=== PATIENT | female | born 1935 | race Asian ===

== ENCOUNTER 2021-05-17 14:49 | Inpatient (IN) ==
[2021-05-17] MEDS ORDERED: Acetaminophen 325 MG TABLET PO PRN (16:57)
[2021-05-17] MEDS ORDERED: Ondansetron 4 MG/2 ML VIAL IVP PRN ×2 (16:57→19:50)
[2021-05-17] MEDS ORDERED: *HR* OxyCODONE Immed Rel 5 MG TABLET PO PRN (17:00)
[2021-05-17] MEDS ORDERED: 0.9 % Sodium Chloride 1,000 ML IVC SCH (17:00)
[2021-05-17] MEDS ORDERED: *HR* HYDROmorphone (PF) 1 MG/ML SYRINGE IVP PRN (17:00)
[2021-05-17] MEDS ORDERED: Ringers Solution, Lactated 1,000 ML IVC ONE (17:14)
[2021-05-17] MEDS ORDERED: Piperacillin/Tazobactam 3.375 GM in 0.9 % Sodium Chloride Mini Bag 100 ML IVPB SCH (17:15)
[2021-05-17] MEDS ORDERED: *HR* HYDROmorphone 2 MG/ML SYRINGE IVP ONE (19:39)
[2021-05-17] MEDS ORDERED: *HR* FentaNYL (PF) 100 MCG/2 ML VIAL IVP PRN (19:50)
[2021-05-17] MEDS ORDERED: *HR* Succinylcholine 200 MG/10 ML VIAL IVP ONE (19:53)
[2021-05-17] MEDS ORDERED: Lidocaine -MPF 4% 5 ML AMPUL ONE (19:53)
[2021-05-17] MEDS ORDERED: *HR* Propofol 200 MG/20 ML VIAL IVP ONE (19:53)
[2021-05-17] MEDS ORDERED: Lidocaine HCL 4 ML Topical Solution (Laryng-O-Jet Kit Sterile Pak) TP ONE (19:53)
[2021-05-17] MEDS ORDERED: *HR* Rocuronium Bromide 50 MG/5 ML VIAL ONE (19:53)
[2021-05-17] MEDS ORDERED: *HR* Phenylephrine 10 MG/ML VIAL ONE (21:16)
[2021-05-17] MEDS ORDERED: Albumin Human 5% 12.5 GM/250 ML IV.SOLN ONE (21:21)
[2021-05-17] MEDS ORDERED: Sugammadex Sodium 200 MG/2 ML VIAL IV ONE (21:40)
[2021-05-17] MEDS ORDERED: *HR* Heparin 5,000 UNIT/ML VIAL SQ SCH (22:00)
[2021-05-17] MEDS ORDERED: Morphine Sulfate 2 MG/ML SYRINGE IVP PRN (23:11)
[2021-05-17] MEDS: 0.9 % Sodium Chloride 1,000 ML IVC SCH (23:23)
[2021-05-17] MEDS: Acetaminophen IV 1,000 MG/100 ML BAG IVPB SCH (23:26)
[2021-05-18 02:58] LABS: Hematocrit 27.7 % (35.3-44.9); Hemoglobin 9.7 g/dL (11.5-15.4); Mean Corpuscular Hemoglobin 30.9 pg (28.0-33.3); Mean Corpuscular Volume 88.2 fL (83.0-100.0); Mean Platelet Volume 9.1 fL (9.4-12.4); Platelet Count 211 K/mcL (140-400); Red Blood Count 3.14 M/mcL (3.82-4.97); Red Cell Distribution Width 12.5 % (11.5-14.5); White Blood Count 6.8 K/mcL (4.3-11.1)
[2021-05-18 03:13] LABS: BUN/Creatinine Ratio 26 (6-26); Blood Urea Nitrogen 15 mg/dL (8-23); Calcium 7.9 mg/dL (8.6-10.3); Carbon Dioxide 22 mEq/L (23-29); Chloride 100 mEq/L (98-107); Glucose 174 mg/dL (70-105); Osmolality,Calculated 277 (280-300); Potassium 3.8 mEq/L (3.5-5.1); Sodium 131 mEq/L (136-145); eGFR For African Americans > 60 (> 60); eGFR For Non-African Americans > 60 (> 60)
[2021-05-18] MEDS: Acetaminophen IV 1,000 MG/100 ML BAG IVPB SCH ×3 (05:53→17:23)
[2021-05-18] MEDS: *HR* Heparin 5,000 UNIT/ML VIAL SQ SCH ×3 (05:53→21:39)
[2021-05-18] MEDS ORDERED: Chloraseptic Spray 177 ML BOTTLE MM PRN (08:59)
[2021-05-18] MEDS: Ketorolac 15 MG/ML VIAL IVP SCH ×2 (12:09→17:24)
[2021-05-18] MEDS ORDERED: Dextrose Gel 15 GM/37.5 ML TUBE PO PRN ×2 (12:37)
[2021-05-18] MEDS ORDERED: D5% in Water 1,000 ML IVC PRN (12:37)
[2021-05-18] MEDS: Insulin LISPRO 300 UNITS/3 ML VIAL SUBQ SCH ×2 (17:26→23:58)
[2021-05-18] MEDS: 0.9 % Sodium Chloride 1,000 ML IVC SCH ×2 (21:20→21:40)
[2021-05-18] MEDS: rOPINIRole 0.25 MG TABLET PO SCH (21:37)
[2021-05-19] MEDS: Acetaminophen IV 1,000 MG/100 ML BAG IVPB SCH ×4 (00:02→21:38)
[2021-05-19] MEDS: Ketorolac 15 MG/ML VIAL IVP SCH ×2 (00:03→05:47)
[2021-05-19] MEDS: *HR* Heparin 5,000 UNIT/ML VIAL SQ SCH ×2 (05:48→13:54)
[2021-05-19 07:48] LABS: Hematocrit 24.1 % (35.3-44.9); Mean Corpuscular HGB Conc 33.2 g/dL (31.6-35.5); Mean Corpuscular Hemoglobin 30.4 pg (28.0-33.3); Mean Corpuscular Volume 91.6 fL (83.0-100.0); Mean Platelet Volume 9.3 fL (9.4-12.4); Platelet Count 185 K/mcL (140-400); Red Blood Count 2.63 M/mcL (3.82-4.97); Red Cell Distribution Width 12.9 % (11.5-14.5); White Blood Count 6.9 K/mcL (4.3-11.1)
[2021-05-19 08:04] LABS: BUN/Creatinine Ratio 20 (6-26); Blood Urea Nitrogen 14 mg/dL (8-23); Calcium 8.2 mg/dL (8.6-10.3); Carbon Dioxide 26 mEq/L (23-29); Chloride 107 mEq/L (98-107); Glucose 93 mg/dL (70-105); Magnesium 2.1 mg/dL (1.6-2.6); Osmolality,Calculated 284 (280-300); Potassium 3.4 mEq/L (3.5-5.1); Sodium 137 mEq/L (136-145); eGFR For African Americans > 60 (> 60); eGFR For Non-African Americans > 60 (> 60)
[2021-05-19] MEDS: Insulin LISPRO 300 UNITS/3 ML VIAL SUBQ SCH ×3 (08:46→17:47)
[2021-05-19] MEDS: 0.9 % Sodium Chloride 1,000 ML IVC SCH (11:45)
[2021-05-19] MEDS: rOPINIRole 0.25 MG TABLET PO SCH (21:38)
[2021-05-20] MEDS: Acetaminophen IV 1,000 MG/100 ML BAG IVPB SCH ×4 (00:27→18:27)
[2021-05-20 02:45] LABS: Hematocrit 23.5 % (35.3-44.9); Hemoglobin 7.9 g/dL (11.5-15.4); Mean Corpuscular HGB Conc 33.6 g/dL (31.6-35.5); Mean Corpuscular Hemoglobin 30.6 pg (28.0-33.3); Mean Corpuscular Volume 91.1 fL (83.0-100.0); Mean Platelet Volume 9.1 fL (9.4-12.4); Platelet Count 185 K/mcL (140-400); Red Blood Count 2.58 M/mcL (3.82-4.97); Red Cell Distribution Width 12.9 % (11.5-14.5); White Blood Count 6.2 K/mcL (4.3-11.1)
[2021-05-20 03:12] LABS: BUN/Creatinine Ratio 27 (6-26); Blood Urea Nitrogen 16 mg/dL (8-23); Calcium 8.1 mg/dL (8.6-10.3); Carbon Dioxide 21 mEq/L (23-29); Chloride 105 mEq/L (98-107); Glucose 63 mg/dL (70-105); Iron 19 mcg/dL (50-170); Osmolality,Calculated 279 (280-300); Phosphorous 1.7 mg/dL (2.7-4.5); Potassium 3.3 mEq/L (3.5-5.1); Sodium 135 mEq/L (136-145); eGFR For African Americans > 60 (> 60); eGFR For Non-African Americans > 60 (> 60)
[2021-05-20 03:24] LABS: Ferritin 217 ng/mL (10-120)
[2021-05-20] MEDS: *HR* Heparin 5,000 UNIT/ML VIAL SQ SCH ×3 (04:34→17:07)
[2021-05-20] MEDS: Insulin LISPRO 300 UNITS/3 ML VIAL SUBQ SCH ×5 (04:35→19:57)
[2021-05-20] MEDS: 0.9 % Sodium Chloride 1,000 ML IVC SCH ×2 (05:00→17:07)
[2021-05-20] MEDS: *HR* Dextrose 50 % in Water (Syg) 50 ML SYRINGE IVP PRN ×2 (05:01→12:19)
[2021-05-20 06:18] LABS: % Iron Saturation 11 % (15-50); Transferrin 129 mg/dL (203-362)
[2021-05-20] MEDS ORDERED: Iron Sucrose Complex 400 MG in 0.9 % Sodium Chloride 250 ML IVPB ONE (07:38)
[2021-05-20] MEDS ORDERED: Potassium Phosphate 44 MEQ in 0.9 % Sodium Chloride 250 ML IVPB ONE (07:38)
[2021-05-20] MEDS ORDERED: Lidocaine -MPF 1% 5 ML AMPUL INFILT ONE (08:01)
[2021-05-20] MEDS ORDERED: D10% in Water 500 ML IVC PRN (12:57)
[2021-05-20] MEDS ORDERED: Clinimix E 5%-15% SOLUTION 2,000 ML with MVI, adult with vitamin K 10 ML IVC SCH (17:00)
[2021-05-20] MEDS: rOPINIRole 0.25 MG TABLET PO SCH (19:57)
[2021-05-21] MEDS: Acetaminophen IV 1,000 MG/100 ML BAG IVPB SCH ×5 (01:06→23:47)
[2021-05-21] MEDS: Insulin LISPRO 300 UNITS/3 ML VIAL SUBQ SCH ×7 (01:14→23:48)
[2021-05-21] MEDS: 0.9 % Sodium Chloride 1,000 ML IVC SCH (05:00)
[2021-05-21 05:49] LABS: BUN/Creatinine Ratio 21 (6-26); Blood Urea Nitrogen 10 mg/dL (8-23); Calcium 8.3 mg/dL (8.6-10.3); Carbon Dioxide 30 mEq/L (23-29); Chloride 104 mEq/L (98-107); Glucose 168 mg/dL (70-105); Osmolality,Calculated 289 (280-300); Phosphorous 2.2 mg/dL (2.7-4.5); Potassium 3.1 mEq/L (3.5-5.1); Sodium 138 mEq/L (136-145); eGFR For African Americans > 60 (> 60); eGFR For Non-African Americans > 60 (> 60)
[2021-05-21 06:00] LABS: Hematocrit 24.1 % (35.3-44.9); Hemoglobin 8.2 g/dL (11.5-15.4); Mean Corpuscular Hemoglobin 30.4 pg (28.0-33.3); Mean Corpuscular Volume 89.3 fL (83.0-100.0); Mean Platelet Volume 8.8 fL (9.4-12.4); Platelet Count 206 K/mcL (140-400); Red Cell Distribution Width 12.7 % (11.5-14.5); White Blood Count 5.1 K/mcL (4.3-11.1)
[2021-05-21] MEDS ORDERED: Potassium Chloride 20 MEQ, Lidocaine 1% 2 ML in 0.9 % Sodium Chloride 250 ML IVPB ONE (07:02)
[2021-05-21] MEDS ORDERED: Potassium Phosphate 44 MEQ in 0.9 % Sodium Chloride 250 ML IVPB ONE ×2 (07:31→08:00)
[2021-05-21] MEDS: *HR* Heparin 5,000 UNIT/ML VIAL SQ SCH ×3 (07:33→22:24)
[2021-05-21 08:12] LABS: Triglycerides 233 mg/dL (< 150)
[2021-05-21] MEDS: Ketorolac 15 MG/ML VIAL IVP SCH ×2 (12:53→20:24)
[2021-05-21] MEDS ORDERED: Clinimix E 5%-15% SOLUTION 2,000 ML with MVI, adult with vitamin K 10 ML IVC SCH (17:00)
[2021-05-21] MEDS: rOPINIRole 0.25 MG TABLET PO SCH (20:26)
[2021-05-22] MEDS: Insulin LISPRO 300 UNITS/3 ML VIAL SUBQ SCH ×5 (04:26→20:36)
[2021-05-22] MEDS: Ketorolac 15 MG/ML VIAL IVP SCH ×3 (04:39→20:36)
[2021-05-22] MEDS: *HR* Heparin 5,000 UNIT/ML VIAL SQ SCH ×3 (05:35→22:16)
[2021-05-22 05:39] LABS: Hematocrit 27.1 % (35.3-44.9); Hemoglobin 9.4 g/dL (11.5-15.4); Mean Corpuscular HGB Conc 34.7 g/dL (31.6-35.5); Mean Corpuscular Hemoglobin 30.9 pg (28.0-33.3); Mean Corpuscular Volume 89.1 fL (83.0-100.0); Mean Platelet Volume 8.8 fL (9.4-12.4); Platelet Count 216 K/mcL (140-400); Red Blood Count 3.04 M/mcL (3.82-4.97); Red Cell Distribution Width 12.7 % (11.5-14.5); White Blood Count 5.1 K/mcL (4.3-11.1)
[2021-05-22 05:54] LABS: BUN/Creatinine Ratio 29 (6-26); Blood Urea Nitrogen 15 mg/dL (8-23); Calcium 9.2 mg/dL (8.6-10.3); Carbon Dioxide 30 mEq/L (23-29); Chloride 99 mEq/L (98-107); Glucose 140 mg/dL (70-105); Osmolality,Calculated 285 (280-300); Phosphorous 3.4 mg/dL (2.7-4.5); Potassium 3.2 mEq/L (3.5-5.1); Sodium 136 mEq/L (136-145); eGFR For African Americans > 60 (> 60); eGFR For Non-African Americans > 60 (> 60)
[2021-05-22] MEDS: Acetaminophen IV 1,000 MG/100 ML BAG IVPB SCH ×2 (08:44→17:17)
[2021-05-22] MEDS ORDERED: Potassium Chloride 40 MEQ, Lidocaine 1% 2 ML in 0.9 % Sodium Chloride 500 ML IVPB ONE (09:37)
[2021-05-22] MEDS ORDERED: Clinimix E 5%-15% SOLUTION 2,000 ML with MVI, adult with vitamin K 10 ML IVC SCH (17:00)
[2021-05-22] MEDS: rOPINIRole 0.25 MG TABLET PO SCH (20:44)
[2021-05-23] MEDS: Insulin LISPRO 300 UNITS/3 ML VIAL SUBQ SCH ×6 (01:09→23:36)
[2021-05-23] MEDS: Acetaminophen IV 1,000 MG/100 ML BAG IVPB SCH ×3 (01:10→15:17)
[2021-05-23 05:40] LABS: BUN/Creatinine Ratio 40 (6-26); Blood Urea Nitrogen 21 mg/dL (8-23); Calcium 9.3 mg/dL (8.6-10.3); Carbon Dioxide 30 mEq/L (23-29); Chloride 99 mEq/L (98-107); Glucose 130 mg/dL (70-105); Magnesium 2.1 mg/dL (1.6-2.6); Osmolality,Calculated 285 (280-300); Phosphorous 4.2 mg/dL (2.7-4.5); Potassium 4.1 mEq/L (3.5-5.1); Sodium 135 mEq/L (136-145); eGFR For African Americans > 60 (> 60); eGFR For Non-African Americans > 60 (> 60)
[2021-05-23] MEDS: *HR* Heparin 5,000 UNIT/ML VIAL SQ SCH ×2 (05:49→15:17)
[2021-05-23] MEDS: Ketorolac 15 MG/ML VIAL IVP SCH ×3 (05:49→20:37)
[2021-05-23] MEDS: 0.9 % Sodium Chloride 1,000 ML IVC SCH (16:59)
[2021-05-23] MEDS ORDERED: Clinimix E 5%-15% SOLUTION 2,000 ML with MVI, adult with vitamin K 10 ML IVC SCH (17:00)
[2021-05-23] MEDS: rOPINIRole 0.25 MG TABLET PO SCH (20:39)
[2021-05-24] MEDS: *HR* Heparin 5,000 UNIT/ML VIAL SQ SCH ×4 (00:10→22:03)
[2021-05-24] MEDS: Insulin LISPRO 300 UNITS/3 ML VIAL SUBQ SCH ×6 (00:10→22:01)
[2021-05-24] MEDS: Ketorolac 15 MG/ML VIAL IVP SCH (05:21)
[2021-05-24 05:58] LABS: Hematocrit 29.5 % (35.3-44.9); Hemoglobin 9.8 g/dL (11.5-15.4); Mean Corpuscular HGB Conc 33.2 g/dL (31.6-35.5); Mean Corpuscular Hemoglobin 30.3 pg (28.0-33.3); Mean Corpuscular Volume 91.3 fL (83.0-100.0); Mean Platelet Volume 8.8 fL (9.4-12.4); Platelet Count 306 K/mcL (140-400); Red Blood Count 3.23 M/mcL (3.82-4.97); Red Cell Distribution Width 12.8 % (11.5-14.5)
[2021-05-24 05:59] LABS: White Blood Count 9.7 K/mcL (4.3-11.1)
[2021-05-24 06:24] LABS: BUN/Creatinine Ratio 39 (6-26); Blood Urea Nitrogen 21 mg/dL (8-23); Calcium 9.4 mg/dL (8.6-10.3); Carbon Dioxide 27 mEq/L (23-29); Chloride 98 mEq/L (98-107); Glucose 155 mg/dL (70-105); Magnesium 2.1 mg/dL (1.6-2.6); Osmolality,Calculated 282 (280-300); Phosphorous 3.5 mg/dL (2.7-4.5); Potassium 4.6 mEq/L (3.5-5.1); Sodium 133 mEq/L (136-145); eGFR For African Americans > 60 (> 60); eGFR For Non-African Americans > 60 (> 60)
[2021-05-24] MEDS ORDERED: *HR* OxyCODONE/APAP 5/325 TABLET PO PRN (08:07)
[2021-05-24] MEDS ORDERED: Acetaminophen 325 MG TABLET PO PRN (08:08)
[2021-05-24] MEDS: Losartan/HCTZ 50-12.5 TABLET PO SCH (09:30)
[2021-05-24] MEDS: Gabapentin 300 MG CAPSULE PO SCH (09:30)
[2021-05-24] MEDS: Ibuprofen 400 MG TABLET PO SCH ×2 (09:30→16:31)
[2021-05-24] MEDS ORDERED: Clinimix E 5%-15% SOLUTION 2,000 ML with MVI, adult with vitamin K 10 ML IVC SCH (17:00)
[2021-05-24] MEDS: rOPINIRole 0.25 MG TABLET PO SCH (22:01)
[2021-05-25] MEDS: Ibuprofen 400 MG TABLET PO SCH ×3 (00:08→17:24)
[2021-05-25] MEDS: Insulin LISPRO 300 UNITS/3 ML VIAL SUBQ SCH ×6 (00:08→20:52)
[2021-05-25 05:21] LABS: Hematocrit 25.8 % (35.3-44.9); Hemoglobin 8.4 g/dL (11.5-15.4); Mean Corpuscular HGB Conc 32.6 g/dL (31.6-35.5); Mean Corpuscular Hemoglobin 30.2 pg (28.0-33.3); Mean Corpuscular Volume 92.8 fL (83.0-100.0); Platelet Count 328 K/mcL (140-400); Red Blood Count 2.78 M/mcL (3.82-4.97); Red Cell Distribution Width 13.1 % (11.5-14.5); White Blood Count 8.3 K/mcL (4.3-11.1)
[2021-05-25] MEDS: *HR* Heparin 5,000 UNIT/ML VIAL SQ SCH ×3 (05:37→20:44)
[2021-05-25 05:42] LABS: BUN/Creatinine Ratio 63 (6-26); Blood Urea Nitrogen 33 mg/dL (8-23); Calcium 9.4 mg/dL (8.6-10.3); Carbon Dioxide 29 mEq/L (23-29); Chloride 99 mEq/L (98-107); Glucose 123 mg/dL (70-105); Magnesium 2.1 mg/dL (1.6-2.6); Osmolality,Calculated 285 (280-300); Phosphorous 4.1 mg/dL (2.7-4.5); Potassium 4.7 mEq/L (3.5-5.1); Sodium 133 mEq/L (136-145); eGFR For African Americans > 60 (> 60); eGFR For Non-African Americans > 60 (> 60)
[2021-05-25] MEDS: Losartan/HCTZ 50-12.5 TABLET PO SCH (09:07)
[2021-05-25] MEDS: Gabapentin 300 MG CAPSULE PO SCH (09:08)
[2021-05-25] MEDS: polyethylene glycoL 3350 17 GM POWD.PACK PO SCH (11:27)
[2021-05-25] MEDS ORDERED: 0.9 % Sodium Chloride 500 ML IVC ONE (14:35)
[2021-05-25] MEDS ORDERED: Clinimix E 5%-15% SOLUTION 2,000 ML with MVI, adult with vitamin K 10 ML IVC SCH (17:00)
[2021-05-25] MEDS: MOM Conc 10 ML UD.LIQ PO SCH (20:44)
[2021-05-25] MEDS: rOPINIRole 0.25 MG TABLET PO SCH (20:44)
[2021-05-26] MEDS: Ibuprofen 400 MG TABLET PO SCH ×2 (00:05→08:10)
[2021-05-26] MEDS: Insulin LISPRO 300 UNITS/3 ML VIAL SUBQ SCH ×6 (03:05→21:05)
[2021-05-26] MEDS: *HR* Heparin 5,000 UNIT/ML VIAL SQ SCH (05:29)
[2021-05-26] MEDS ORDERED: Ringers Solution, Lactated 1,000 ML IVC ONE (07:47)
[2021-05-26 08:16] LABS: BUN/Creatinine Ratio 83 (6-26); Blood Urea Nitrogen 49 mg/dL (8-23); Carbon Dioxide 28 mEq/L (23-29); Chloride 100 mEq/L (98-107); Glucose 155 mg/dL (70-105); Osmolality,Calculated 292 (280-300); Phosphorous 4.2 mg/dL (2.7-4.5); Potassium 4.5 mEq/L (3.5-5.1); Sodium 133 mEq/L (136-145); eGFR For African Americans > 60 (> 60); eGFR For Non-African Americans > 60 (> 60)
[2021-05-26 08:58] LABS: Magnesium 2.8 mg/dL (1.6-2.6)
[2021-05-26] MEDS: Gabapentin 300 MG CAPSULE PO SCH (09:11)
[2021-05-26 11:00] LABS: Hematocrit 18.7 % (35.3-44.9); Hemoglobin 6.1 g/dL (11.5-15.4); Mean Corpuscular HGB Conc 32.6 g/dL (31.6-35.5); Mean Corpuscular Hemoglobin 30.7 pg (28.0-33.3); Mean Platelet Volume 9.2 fL (9.4-12.4); Platelet Count 348 K/mcL (140-400); Red Blood Count 1.99 M/mcL (3.82-4.97); Red Cell Distribution Width 13.3 % (11.5-14.5); White Blood Count 9.4 K/mcL (4.3-11.1)
[2021-05-26] MEDS ORDERED: 0.9 % Sodium Chloride 250 ML ONE (11:07)
[2021-05-26] MEDS: polyethylene glycoL 3350 17 GM POWD.PACK PO SCH (11:12)
[2021-05-26] MEDS ORDERED: 0.9 % Sodium Chloride 250 ML IVC SCH (11:15)
[2021-05-26] MEDS ORDERED: Pantoprazole 40 MG VIAL IVP SCH (11:15)
[2021-05-26] MEDS ORDERED: Clinimix E 5%-15% SOLUTION 2,000 ML with MVI, adult with vitamin K 10 ML IVC SCH (17:00)
[2021-05-26 20:35] LABS: Hematocrit 22.6 % (35.3-44.9); Hemoglobin 7.6 g/dL (11.5-15.4); Mean Corpuscular HGB Conc 33.6 g/dL (31.6-35.5); Mean Corpuscular Hemoglobin 30.9 pg (28.0-33.3); Mean Corpuscular Volume 91.9 fL (83.0-100.0); Mean Platelet Volume 9.3 fL (9.4-12.4); Platelet Count 338 K/mcL (140-400); Red Blood Count 2.46 M/mcL (3.82-4.97); Red Cell Distribution Width 13.6 % (11.5-14.5); White Blood Count 12.3 K/mcL (4.3-11.1)
[2021-05-26] MEDS: Pantoprazole 40 MG VIAL IVP SCH (21:03)
[2021-05-26] MEDS: MOM Conc 10 ML UD.LIQ PO SCH (21:04)
[2021-05-26] MEDS: rOPINIRole 0.25 MG TABLET PO SCH (21:04)
[2021-05-27] MEDS: Insulin LISPRO 300 UNITS/3 ML VIAL SUBQ SCH ×6 (00:21→20:21)
[2021-05-27 06:42] LABS: Basophils % 0.4 %; Eosinophils # 0.2 K/mcL (0.0-0.6); Eosinophils % 1.6 %; Hematocrit 21.8 % (35.3-44.9); Hemoglobin 7.4 g/dL (11.5-15.4); Lymphocytes # 1.5 K/mcL (0.6-4.6); Lymphocytes % 15.1 %; Mean Corpuscular HGB Conc 33.9 g/dL (31.6-35.5); Mean Corpuscular Hemoglobin 31.6 pg (28.0-33.3); Mean Corpuscular Volume 93.2 fL (83.0-100.0); Mean Platelet Volume 9.4 fL (9.4-12.4); Monocytes # 0.7 K/mcL (0.0-1.3); Monocytes % 6.6 %; Neutrophils # 7.4 K/mcL (1.6-8.9); Nucleated Red Blood Cells 0.3 /100 WBC (0); Platelet Count 326 K/mcL (140-400); Red Blood Count 2.34 M/mcL (3.82-4.97); Red Cell Distribution Width 13.8 % (11.5-14.5); Segmented Neutrophils % 74.3 %
[2021-05-27 07:03] LABS: BUN/Creatinine Ratio 41 (6-26); Blood Urea Nitrogen 23 mg/dL (8-23); Calcium 8.9 mg/dL (8.6-10.3); Carbon Dioxide 28 mEq/L (23-29); Chloride 102 mEq/L (98-107); Glucose 149 mg/dL (70-105); Magnesium 2.4 mg/dL (1.6-2.6); Osmolality,Calculated 286 (280-300); Phosphorous 2.7 mg/dL (2.7-4.5); Potassium 3.9 mEq/L (3.5-5.1); Sodium 135 mEq/L (136-145); eGFR For African Americans > 60 (> 60); eGFR For Non-African Americans > 60 (> 60)
[2021-05-27] MEDS: Gabapentin 300 MG CAPSULE PO SCH (09:12)
[2021-05-27] MEDS: polyethylene glycoL 3350 17 GM POWD.PACK PO SCH (09:12)
[2021-05-27] MEDS: Pantoprazole 40 MG VIAL IVP SCH ×2 (09:18→20:41)
[2021-05-27] MEDS ORDERED: Iron Sucrose Complex 250 MG in 0.9 % Sodium Chloride 250 ML IVPB ONE (13:38)
[2021-05-27] MEDS: MOM Conc 10 ML UD.LIQ PO SCH (20:41)
[2021-05-27] MEDS: rOPINIRole 0.25 MG TABLET PO SCH (20:41)
[2021-05-28] MEDS: Insulin LISPRO 300 UNITS/3 ML VIAL SUBQ SCH ×2 (00:21→06:00)
[2021-05-28] MEDS: Ondansetron 4 MG/2 ML VIAL IVP PRN ×2 (00:38→23:19)
[2021-05-28 04:37] LABS: BUN/Creatinine Ratio 30 (6-26); Blood Urea Nitrogen 21 mg/dL (8-23); Carbon Dioxide 29 mEq/L (23-29); Chloride 99 mEq/L (98-107); Glucose 114 mg/dL (70-105); Magnesium 2.7 mg/dL (1.6-2.6); Osmolality,Calculated 282 (280-300); Potassium 4.4 mEq/L (3.5-5.1); Sodium 134 mEq/L (136-145); eGFR For African Americans > 60 (> 60); eGFR For Non-African Americans > 60 (> 60)
[2021-05-28 05:45] LABS: Hematocrit 22.5 % (35.3-44.9); Hemoglobin 7.3 g/dL (11.5-15.4); Mean Corpuscular HGB Conc 32.4 g/dL (31.6-35.5); Mean Corpuscular Hemoglobin 31.2 pg (28.0-33.3); Mean Corpuscular Volume 96.2 fL (83.0-100.0); Red Blood Count 2.34 M/mcL (3.82-4.97); Red Cell Distribution Width 14.6 % (11.5-14.5)
[2021-05-28 05:46] LABS: Basophils # 0.1 K/mcL (0.0-0.2); Basophils % 0.4 %; Eosinophils # 0.2 K/mcL (0.0-0.6); Eosinophils % 1.9 %; Immature Granulocytes % 1.8 % (0-4); Lymphocytes # 1.7 K/mcL (0.6-4.6); Lymphocytes % 14.4 %; Mean Platelet Volume 9.6 fL (9.4-12.4); Monocytes # 0.9 K/mcL (0.0-1.3); Monocytes % 7.5 %; Neutrophils # 8.9 K/mcL (1.6-8.9); Platelet Count 425 K/mcL (140-400)
[2021-05-28] MEDS: polyethylene glycoL 3350 17 GM POWD.PACK PO SCH (08:31)
[2021-05-28] MEDS: Gabapentin 300 MG CAPSULE PO SCH (08:33)
[2021-05-28] MEDS: Pantoprazole 40 MG VIAL IVP SCH (08:33)
[2021-05-28] MEDS: MOM Conc 10 ML UD.LIQ PO SCH (21:49)
[2021-05-28] MEDS: rOPINIRole 0.25 MG TABLET PO SCH (21:49)
[2021-05-29 07:09] LABS: Basophils % 0.3 %; Eosinophils # 0.1 K/mcL (0.0-0.6); Hematocrit 23.7 % (35.3-44.9); Hemoglobin 7.8 g/dL (11.5-15.4); Immature Granulocytes % 1.1 % (0-4); Lymphocytes # 1.3 K/mcL (0.6-4.6); Lymphocytes % 9.2 %; Mean Corpuscular HGB Conc 32.9 g/dL (31.6-35.5); Mean Corpuscular Hemoglobin 31.6 pg (28.0-33.3); Mean Platelet Volume 9.2 fL (9.4-12.4); Monocytes # 0.9 K/mcL (0.0-1.3); Monocytes % 6.5 %; Neutrophils # 11.7 K/mcL (1.6-8.9); Nucleated Red Blood Cells 0.2 /100 WBC (0); Platelet Count 477 K/mcL (140-400); Red Blood Count 2.47 M/mcL (3.82-4.97); Segmented Neutrophils % 81.9 %; White Blood Count 14.2 K/mcL (4.3-11.1)
[2021-05-29 07:26] LABS: BUN/Creatinine Ratio 24 (6-26); Blood Urea Nitrogen 18 mg/dL (8-23); Calcium 9.1 mg/dL (8.6-10.3); Carbon Dioxide 29 mEq/L (23-29); Chloride 98 mEq/L (98-107); Glucose 112 mg/dL (70-105); Magnesium 2.7 mg/dL (1.6-2.6); Osmolality,Calculated 281 (280-300); Potassium 4.5 mEq/L (3.5-5.1); Sodium 134 mEq/L (136-145); eGFR For African Americans > 60 (> 60); eGFR For Non-African Americans > 60 (> 60)
[2021-05-29] MEDS: Gabapentin 300 MG CAPSULE PO SCH (07:49)
[2021-05-29] MEDS: polyethylene glycoL 3350 17 GM POWD.PACK PO SCH (07:49)
[2021-05-29 11:22] LABS: Adenovirus Not Detected (Not Detect); Bordetella Pertussis Not Detected (Not Detect); Chlamydophila pneumoniae Not Detected (Not Detect); Coronavirus 229E Not Detected (Not Detect); Coronavirus HKU1 Not Detected (Not Detect); Coronavirus NL63 Not Detected (Not Detect); Coronavirus OC43 Not Detected (Not Detect); Human Metapneumovirus Not Detected (Not Detect); Human Rhinovirus/Enterovirus Not Detected (Not Detect); Influenza A Subtype 2009 H1 Not Detected (Not Detect); Influenza B Not Detected (Not Detect); Mycoplasma pneumoniae Not Detected (Not Detect); Parainfluenza Virus 1 Not Detected (Not Detect); Parainfluenza Virus 2 Not Detected (Not Detect); Parainfluenza Virus 3 Not Detected (Not Detect); Parainfluenza Virus 4 Not Detected (Not Detect); Respiratory Syncytial Virus Not Detected (Not Detect); SARS-CoV-2 Not Detected (Not Detect)
[2021-05-29 11:44] VITALS: BP 109/70; PULSE 85; TEMP 97.9; O2SAT 95
[2021-05-29] MEDS ORDERED: metroNIDAZOLE 500 MG TABLET PO ONE ×2 (12:43→14:00)
[2021-05-29] MEDS ORDERED: Piperacillin/Tazobactam 3.375 GM in 0.9 % Sodium Chloride Mini Bag 100 ML IVPB SCH (16:00)
== END 2021-05-29 23:20 | DRG 330 ==
LOC: 3ANU → SUATTDRO 16:33
PROVIDERS: ADMIT Internal Medicine; ATTEND Pharmacist